=== PATIENT | female | born 2000 | race Two or more races ===

== ENCOUNTER 2025-03-12 23:29 | Emergency (ER) | payer BC, MEDICAID ==
[~2025-03-12] VITALS: Ht 157.5 cm; Wt 60.0 kg
--- NOTE | 2025-03-12 23:47 | ED.PDOC ---
Altered Mental Status HPI Comments 24 year old female who came to ER by EMS for alcohol intoxication, nausea, vomiting. Per EMS, patient picked up at home, which she started drinking alcohol at 10:00 p.m. with friends. Patient became intoxicated and started the having episodes of nausea and vomiting. Patient is A&O x1 on scene, was given IV fluids and Zofran while in the route to the ER. Patient is 1 week post . Additional history is taken with the patient's cousin who arrived shortly after the patient arrived. She states that the patient was drinking several bottles falls and Tequila. She then started complaining of abdominal pain and started having several episodes of vomiting. This is why the cousin called 911. 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 Hx Family History Family History: Reviewed,noncontributory to illness Social History Smoker: Non-Smoker Alcohol: Heavy Drugs: Denies Drug Use Lives In: Home Unable to Obtain due to: Altered Mental Status, Other (Alcohol intoxication) Physical Exam General Appearance: No Apparent Distress, Normal HEENT: Normal ENT Inspection, Pharynx Normal, TMs Normal Neck: Full Range of Motion, Non-Tender, Normal, Normal Inspection Respiratory: Chest Non-Tender, Lungs Clear, No Accessory Muscle Use, No Respiratory Distress, Normal Breath Sounds Cardiovascular: No Edema, No JVD, No Murmur, No Gallop, Normal Peripheral Pulses, Regular Rate/Rhythm Breast Exam: Deferred Gastrointestinal: No Organomegaly, Non Tender, No Pulsatile Mass, Normal Bowel Sounds, Soft Genitalia: Deferred Pelvic: Deferred Rectal: Deferred Extremities: No calf tenderness, Normal capillary refill, Normal inspection, Normal range of motion, Non-tender, No pedal edema Musculoskeletal : Apperance: Normal Neurologic: Alert, 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 Was a procedure done?: No Differential Diagnosis (ALOC) Differential Diagnosis: Dehydration, Hypoglycemia, Encephalopathy, ETOH Intoxication X-Ray, Labs, Meds, VS Vital Signs Date Time Temp Pulse Resp B/P (MAP) Pulse Ox O2 Delivery O2 Flow Rate FiO2 03/13/25 02:00 93 14 93/49 (64) 97 03/13/25 00:28 72 19 97 Room Air* 0 21 03/13/25 00:20 97.9 72 19 128/93 (105) 97 97.9 03/12/25 23:29 98.9 98 14 105/66 98 98.9 Lab Test 03/12/25 23:50 Range/Units White Blood Count 13.8 H 4.4-10.8 10^3/uL Red Blood Count 4.54 4.0-5.20 10^6/uL Hemoglobin 12.7 12.2-16.2 g/dL Hematocrit 38.8 36.0-46.0 % Mean Corpuscular Volume 85.5 80.0-100.0 fL Mean Corpuscular Hemoglobin 27.9 L 28.0-32.0 pg Mean Corpuscular Hemoglobin Concent 32.7 32.0-36.0 g/dL Red Cell Distribution Width 14.5 H 11.8-14.3 % Platelet Count 459 H 140-450 10^3/uL Mean Platelet Volume 6.5 L 6.9-10.8 fL Neutrophils (%) (Auto) 58.7 37.0-80.0 % Lymphocytes (%) (Auto) 34.4 10.0-50.0 % Monocytes (%) (Auto) 5.2 0.0-12.0 % Eosinophils (%) (Auto) 1.1 0.0-7.0 % Basophils (%) (Auto) 0.6 0.0-2.0 % Neutrophils # (Auto) 8.1 1.6-8.6 10 ^3/uL Lymphocytes # (Auto) 4.8 0.4-5.4 10 ^3/uL Monocytes # (Auto) 0.7 0-1.3 10 ^3/uL Eosinophils # (Auto) 0.1 0-0.8 10 ^3/uL Basophils # (Auto) 0.1 0-0.2 10 ^3/uL Nucleated Red Blood Cells 0.1 % Sodium Level 147 H 136-145 mmol/L Potassium Level 3.3 L 3.5-5.1 mmol/L Chloride Level 112 H 98-107 mmol/L Carbon Dioxide Level 21 20-31 mmol/L Anion Gap 14 5-15 Blood Urea Nitrogen 8 L 9-23 mg/dL Creatinine 0.77 0.550-1.02 mg/dL Glomerular Filtration Rate Calc 114 >90 mL/min BUN/Creatinine Ratio 10.4 10.0-20.0 Serum Glucose 115 H 74-106 mg/dL Calcium Level 8.2 L 8.7-10.4 mg/dL Total Bilirubin 0.5 0.2-1.0 mg/dL Aspartate Amino Transferase (AST) 18 13-40 U/L Alanine Aminotransferase (ALT) 11 7-40 U/L Alkaline Phosphatase 100 46-116 U/L Total Protein 6.3 5.7-8.2 g/dL Albumin 4.0 3.2-4.8 g/dL Plasma/Serum Blood Alcohol 301.1 H <10 mg/dL Current Medications Medications (Trade) Dose Ordered Sig/Salas Route Start Time Stop Time Status Last Admin Sodium Chloride 1,000 ml @ 1,000 mls/hr Q1H ONCE IV 03/13/25 00:30 03/13/25 01:29 DC 03/13/25 00:52 Famotidine (Pepcid Injection) 20 mg ONCE ONCE IV 03/13/25 00:30 03/13/25 00:31 DC 03/13/25 00:52 Ondansetron HCl (Zofran) 4 mg ONCE ONCE IV 03/13/25 00:30 03/13/25 00:31 DC 03/13/25 00:52 Time of 1ST Reevaluation: 23:44 Reevaluation 1ST: Unchanged Patient Education/Counseling: Diagnosis, Treatment Family Education/Counseling: No Family Present SEPSIS Sepsis Screen Date sepsis recognized/suspect: Mar 12, 2025 Time Sepsis recognized/suspect: 2328 Recent Procedure: No On Antibiotic Therapy: No Respiratory Rate >20: No Heart Rate >90: No Temp<36 C (96.8 F) or >38.3 C: No SBP <90 or MAP <65 mmHG: No New Acute Mental Status Change: No Is the patient on CPAP, BIPAP,: No Vital Signs Date Time Temp Pulse Resp B/P (MAP) Pulse Ox O2 Delivery O2 Flow Rate FiO2 03/13/25 02:00 93 14 93/49 (64) 97 03/13/25 00:28 72 19 97 Room Air* 0 21 03/13/25 00:20 97.9 72 19 128/93 (105) 97 97.9 03/12/25 23:29 98.9 98 14 105/66 98 98.9 Laboratory Tests Test 03/12/25 23:50 White Blood Count 13.8 10^3/uL (4.4-10.8) H Medications Medications Dose Ordered Sig/Salas Route Start Time Stop Time Status Last Admin Dose Admin Famotidine 20 mg ONCE ONCE IV 03/13/25 00:30 03/13/25 00:31 DC 03/13/25 00:52 Ondansetron HCl 4 mg ONCE ONCE IV 03/13/25 00:30 03/13/25 00:31 DC 03/13/25 00:52 Sodium Chloride 1,000 ml @ 1,000 mls/hr Q1H ONCE IV 03/13/25 00:30 03/13/25 01:29 DC 03/13/25 00:52 Departure 1 Departure Time of Disposition: 23:53 (24-year-old female with no past medical history was brought in after the patient started having nausea and vomiting due to heavy alcohol consumption tonight. Due to the nausea and vomiting in the setting of excessive alcohol consumption consider possible alcoholic gastritis versus pancreatitis. Lipase within normal limits, does not seem consistent with alcoholic pancreatitis. CBC with no evidence of critical leukocytosis or significant anemia. Metabolic panel shows mild hypokalemia, likely related to several episodes of vomiting tonight. However, no evidence of acute kidney insufficiency. Liver function tests within normal limits. Patient receiving IV fluids provided by medics. Given 1 L normal saline IV fluid bolus here, IV Pepcid, IV Zofran. Alcohol level is elevated in the low 300s, consistent with initial presumption that the patient was intoxicated. Patient with no signs of external trauma requires no imaging at this time. No further episodes of vomiting while in the ER. Patient was observed for several hours until more clinically sober and able to ambulate steadily to be discharged home. Will be discharged home with cousin.) Impression: Primary Impression: Nausea and vomiting Additional Impression: Alcohol poisoning Disposition: HOME / SELF CARE / HOMELESS Condition: Stable Discharged With: Self Critical Care Note Critical Care Time?: No Stability Stability form required: No Heart Score Heart Score: Heart Score Response (Comments) Value History N/A 0 EKG N/A 0 Age N/A 0 Risk Factors N/A 0 Troponin N/A 0 Total 0 I personally scribed for JOSHUA MAYER MD ([email or web address]) on 03/12/25 at 23:47. Electronically submitted by Devon Greenfield ([facility]). JOSHUA MAYER MD Mar 12, 2025 23:47
[2025-03-13 00:02] LABS: Hematocrit 38.8 % (36.0-46.0); Hemoglobin 12.7 g/dL (12.2-16.2); Mean Corpuscular Hemoglobin 27.9 pg (28.0-32.0); Mean Corpuscular Volume 85.5 fL (80.0-100.0); Nucleated Red Blood Cells % 0.1 %
[2025-03-13 00:20] VITALS: TEMP 97.9
[2025-03-13 00:28] VITALS: PULSE 72; RESP 19; O2SAT 97
[2025-03-13 00:32] LABS: Alanine Aminotransferase 11 U/L (7-40); Albumin 4.0 g/dL (3.2-4.8); Alkaline Phosphatase 100 U/L (46-116); Anion Gap 14 (5-15); BUN/Creatinine Ratio 10.4 (10.0-20.0); Carbon Dioxide 21 mmol/L (20-31); Total Protein 6.3 g/dL (5.7-8.2)
[2025-03-13 00:33] LABS: Bilirubin, Total 0.5 mg/dL (0.2-1.0)
[2025-03-13] MEDS: FAMOTIDINE (10MG/ML) 2ML VL IV ONE (00:52)
[2025-03-13] MEDS: ONDANSETRON HCL 4 MG/2 ML VIAL IV ONE (00:52)
[2025-03-13] MEDS: SODIUM CHLORIDE 0.9% 1,000 ML IV ONE (00:52)
[2025-03-13 00:53] LABS: Blood Urea Nitrogen 8 mg/dL (9-23); Calcium 8.2 mg/dL (8.7-10.4); Chloride 112 mmol/L (98-107); Glucose 115 mg/dL (74-106); Potassium 3.3 mmol/L (3.5-5.1); Sodium 147 mmol/L (136-145)
[2025-03-13 03:32] VITALS: BP 107/68; PULSE 84; RESP 14; O2SAT 97
== END 2025-03-13 03:17 | disposition home or self-care (01) ==
LOC: ER 23:29 → EDBD 23:29 → ER 03-13 03:17
DX: T51.0X1A Toxic effect of ethanol, accidental (unintentional), initial encounter (principal); R11.2 Nausea with vomiting, unspecified; F10.129 Alcohol abuse with intoxication, unspecified; Y90.8 Blood alcohol level of 240 mg/100 ml or more; Y92.89 Other specified places as the place of occurrence of the external cause
CPT/HCPCS: 36415; 80053; 80320; 85025; 96361; 96374; 96375; 99284; J2405; J3490; J7030